=== PATIENT | female | born 1965 | race Caucasian/White ===

== ENCOUNTER 2016-07-30 13:17 | Emergency (ER) | payer OTHER ==
[2016-07-30 15:31] LABS: HEMOGLOBIN 12.5 gm/dl (12.3-15.3); RED BLOOD COUNT 4.42 M/UL (4.00-5.10); WHITE BLOOD COUNT 7.3 K/UL (4.5-11.0)
[2016-07-30 15:49] LABS: BUN/CREATININE RATIO 9 (0-10)
== END 2016-07-30 17:31 | disposition home or self-care (01) ==
LOC: ER1 13:17
PROVIDERS: Physician Assistant Medical
DX: J10.1 Influenza due to other identified influenza virus with other respiratory manifestations (principal); E11.9 Type 2 diabetes mellitus without complications; I10 Essential (primary) hypertension; J45.909 Unspecified asthma, uncomplicated; Z88.5 Allergy status to narcotic agent; Z79.84 Long term (current) use of oral hypoglycemic drugs; Z79.899 Other long term (current) drug therapy
CPT/HCPCS: 36415; 71020; 80053; 81001; 83880; 84484; 85025; 87081; 87880; 99285

== ENCOUNTER 2016-10-10 17:20 | Emergency (ER) | payer OTHER ==
[2016-10-10 19:34] LABS: HEMOGLOBIN 12.2 gm/dl (12.3-15.3); RED BLOOD COUNT 4.34 M/UL (4.00-5.10); WHITE BLOOD COUNT 17.2 K/UL (4.5-11.0)
== END 2016-10-10 22:48 | disposition short-term general hospital (02) ==
LOC: ER1 17:20
PROVIDERS: Physician Assistant
DX: G45.9 Transient cerebral ischemic attack, unspecified (principal); N39.0 Urinary tract infection, site not specified; I11.9 Hypertensive heart disease without heart failure; E78.5 Hyperlipidemia, unspecified; E11.9 Type 2 diabetes mellitus without complications; K21.9 Gastro-esophageal reflux disease without esophagitis; F32.9 Major depressive disorder, single episode, unspecified; F41.9 Anxiety disorder, unspecified; J45.909 Unspecified asthma, uncomplicated; I25.10 Atherosclerotic heart disease of native coronary artery without angina pectoris; M19.90 Unspecified osteoarthritis, unspecified site; Z79.84 Long term (current) use of oral hypoglycemic drugs; Z79.82 Long term (current) use of aspirin; Z88.5 Allergy status to narcotic agent; Z88.8 Allergy status to other drugs, medicaments and biological substances
CPT/HCPCS: 36415; 70450; 71010; 80053; 81001; 82550; 82553; 83874; 84484; 84703; 85025; 85610; 85730; 93005; 96374; 99285; J0696; J7050

== ENCOUNTER → 2021-07-02 | Outpatient (CLI) | payer MEDICARE ==
[~2021-07-02] MED LIST: ACETAMINOPHEN-1 EAC1 PO; AMARYL4 MG PO; BREO ELLIPTA 11 EACH INH; BUSPAR 5MG TABLE5 MG PO; CIPRO500 MG PO; COLACE 100MG C100 MG PO; ECOTRIN81 MG PO; FERROUS SULFAT325 M2 PO; FIORICET TAB1 EA PO; FLONASE 0.05% N16 GM; IMDUR ER TAB 3030 MG PO; IPRAT-ALBUT 0.5-3 ML INH; IRON PO; LIPITOR80 MG PO; LISINOPRIL-HCT1 EAC1 PO; LOPRESSOR50 MG PO; NAPROSYN500 MG PO; NEURONTIN 300300 MG PO; NITROSTAT0.4 MG SL; OMEPRAZOLE40 MG PO; PLAVIX75 MG PO; SINGULAIR10 MG PO; SYNTHROID50 MCG PO; TOPAMAX100 MG PO; TRAZODONE HCL100 MG PO; TYLENOL W/CODEIN1 E1 PO; VENTOLIN HFA 66.7 GM INH; VISTARIL 50 MG50 MG PO; VITAMIN D32000 UNI1 PO; WELLBUTRIN XL150 M1 PO; ZANAFLEX4 MG PO
== END ==
LOC: MRI 09:06
PROVIDERS: Orthopaedic Surgery
DX: M47.812 Spondylosis without myelopathy or radiculopathy, cervical region (principal); M25.78 Osteophyte, vertebrae; M47.813 Spondylosis without myelopathy or radiculopathy, cervicothoracic region; M48.03 Spinal stenosis, cervicothoracic region; M48.02 Spinal stenosis, cervical region
CPT/HCPCS: 36415; 72156; 80048; A9577